=== PATIENT | female | born 1970 | race Caucasian/White ===

== ENCOUNTER 2017-10-16 18:49 | Emergency (ER) | payer OTHER ==
[~2017-10-16] VITALS: Ht 170.2 cm; Wt 95.3 kg
[2017-10-16 19:14] VITALS: BP 145/74
[2017-10-16] MEDS ORDERED: HYDR-971 PO (19:39)
--- NOTE | 2017-10-16 19:39 | PHYS DOC ---
Past Medical History Past Medical History: Other Additional Past Medical Histor: Chronic back pain Past Surgical History: Other Additional Past Surgical Histo: L4-S1 fusion Alcohol Use: None Drug Use: None Adult General Chief Complaint Chief Complaint: SHOUDLER HPI HPI Patient is a 47 year old F who presents with left shoulder pain. She reports it has been painful for a couple of months. She saw Dr. Mathur and is waiting for an MRI to be scheduled. She reports otc meds are not helping. She denies new injury. She has a sling, but hasn't been wearing it. Review of Systems Review of Systems Constitutional: Denies fever or chills [] Musculoskeletal: Left shoulder pain Integument: Denies rash or skin lesions [] Neurologic: Denies focal weakness or sensory changes [] All other systems were reviewed and found to be within normal limits, except as documented in this note. Allergies Allergies Allergies Coded Allergies Type Severity Reaction Last Updated Verified aspirin Adverse Reaction Intermediate heart races 10/16/17 Yes Physical Exam Physical Exam Constitutional: Well developed, well nourished, no acute distress, non-toxic appearance. [] HENT: Normocephalic, atraumatic Eyes: PERRLA, EOMI, conjunctiva normal, no discharge. [] Neck: Normal range of motion, no tenderness, supple, no stridor. [] Cardiovascular:Heart rate regular rhythm, no murmur [] Lungs & Thorax: Bilateral breath sounds clear to auscultation [] Skin: Warm, dry, no erythema, no rash. [] Extremities: Tenderness to left shoulder, limited ROM d/t pain Neurologic: Alert and oriented X 3, normal motor function, normal sensory function, no focal deficits noted. [] Psychologic: Affect normal, judgement normal, mood normal. [] Current Patient Data Vital Signs Vital Signs Date Time Temp Pulse Resp B/P (MAP) Pulse Ox O2 Delivery O2 Flow Rate FiO2 10/16/17 19:14 98.5 87 18 145/74 (97) 99 Room Air 98.5 EKG EKG [] Radiology/Procedures Radiology/Procedures [] Course & Med Decision Making Course & Med Decision Making Pertinent Labs and Imaging studies reviewed. (See chart for details) Plan: norco rx, wear sling, f/u with PCP, return precautions reviewed Chito Disclaimer Chito Disclaimer This electronic medical record was generated, in whole or in part, using a voice recognition dictation system. Departure Departure Impression: Primary Impression: Shoulder pain, acute Disposition: 01 HOME, SELF-CARE Condition: GOOD Referrals: JONO BUCKNER APRN (PCP) Patient Instructions: Shoulder Pain Scripts Hydrocodone/Apap 5-325 (NORCO 5-325 TABLET) 1 Each Tablet 1 TAB PO PRN Q6HRS PRN for PAIN, #20 TAB 0 Refills Prov: LOUIS REBOLLEDO APRN 10/16/17 Problem Qualifiers Primary Impression: Shoulder pain, acute Laterality: left Qualified Codes: M25.512 - Pain in left shoulder LOUIS REBOLLEDO APRN Oct 16, 2017 19:39
== END 2017-10-16 19:56 | disposition home or self-care (01) ==
LOC: ER 18:49
DX: M25.512 Pain in left shoulder (principal); G89.29 Other chronic pain; Z98.1 Arthrodesis status; Z88.6 Allergy status to analgesic agent
CPT/HCPCS: 99283

== ENCOUNTER → 2017-10-22 | Outpatient (CLI) | payer OTHER ==
[2017-10-16 19:14] VITALS: BP 145/74
[~2017-10-22] MED LIST: HYDR-971 PO
--- NOTE | 2017-10-22 09:11 | RAD ---
UPPER EXT JOINT WO CONT LEFT dated 10/22/2017 8:15 AM Indication: LEFT SHOUYLDER PAIN X 4 MONTHS, LROM, NKI, NO SX HX, NO PRIORS pain for 4 months .. Comparison: No comparison is available. Technique: Routine multiplanar multisequence imaging performed. . Findings: There is hyperintense T2 signal throughout the supraspinatus and infraspinatus portions of the rotator cuff. There is some linear fluid bright T2 signal suggestive of interstitial partial-thickness tearing. There is also a small bursal surface partial tear near the supraspinatus-infraspinatus junction near the critical zone. No full thickness cuff defect or cuff retraction. The subscapularis is intact. Mild hypertrophic change of the acromioclavicular joint. Mild undersurface irregularity of the acromium. Trace amount of subacromial/subdeltoid bursal fluid. Acromion type I morphology. Long head biceps tendon and biceps anchor are intact. There is minimal increased signal within the intra-articular portion. The extra articular portion courses within the bicipital groove. Glenoid labrum is not well evaluated due to poor signal in the axial sequences. There is some linear signal at the anterior inferior labrum could be artifactual or related to a small tear. The glenoid articular cartilage is intact. No joint effusion or loose body. Suprascapular and spinoglenoid notches are clear. There is mild edema within the infraspinatus muscle. No significant muscle atrophy. No bone marrow edema. IMPRESSION: 1. Moderate rotator cuff tendinopathy with mild interstitial and bursal surface partial tearing. No full-thickness tear or cuff retraction. 2. Mild edema within the infraspinatus muscle, reactive edema versus low-grade strain. 3. Possible small linear defect at the anterior inferior labrum versus artifact. If indicated, an MR arthrogram could better evaluate. 4. Mild AC joint arthropathy. 5. Mild biceps tendinosis. Electronically signed by: Price Bellamy MD (10/22/2017 9:08 AM) [email or web address]
== END | disposition home or self-care (01) ==
LOC: MRI 07:43
PROVIDERS: ATTEND Orthopaedic Surgery Sports Medicine
DX: M75.102 Unspecified rotator cuff tear or rupture of left shoulder, not specified as traumatic (principal); M12.812 Other specific arthropathies, not elsewhere classified, left shoulder; M75.22 Bicipital tendinitis, left shoulder; R60.0 Localized edema; Z88.6 Allergy status to analgesic agent
CPT/HCPCS: 73221

== ENCOUNTER → 2017-12-18 | Day surgery (SDC) | payer OTHER ==
[~2017-12-18] MED LIST changes: +BUPIVACAINE 0.5% 50 ML VIAL. ONE; +DEXAMETHASONE SOD PHOS 20 MG/5 ML VIAL. ONE; +DIPH25CA58 PO; +DOCU-109 PO; +EPINEPHrine VIAL 30 MG/30 ML VIAL ONE; +GABA-586 PO; +GLYCOPYRROLATE 1 MG/5 ML VIAL. ONE; +HYDROmorphone 2 MG/ML VIAL IV PRN; +IBUP-1027 PO; +IV RINGERS,LACTATED 1000ML 1,000 ML IV SCH; +LIDOCAINE 1% PF 2 ML VIAL. ID PRN; +LIDOCAINE 1% PF 30 ML VIAL. ONE; +LIDOCAINE 2% PF Vial for OR 5 ML VIAL. ONE; +METH-37 PO; +MIDAZOLAM HCL/PF 2 MG/2 ML VIAL. ONE; +MORPHINE SULFATE 2 MG/ML VIAL. ONE; +ONDA4TAB10 SL; +ONDANSETRON PF 4 MG/2 ML VIAL. IV PRN; +ONDANSETRON PF 4 MG/2 ML VIAL. ONE; +OXYC-323 PO; +PHENYLEPHRINE 10 MG/ML VIAL. ONE; +PROCHLORPERAZINE 10 MG/2 ML VIAL. IV PRN; +PROPOFOL 20 ML IV ONE; +SEVOFLURANE 61 TO 120 MINUTES. IH ONE; +SUCCINYLCHOLINE 200 MG/10 ML VIAL. ONE; +fentaNYL PF VIAL 100 MCG/2 ML VIAL IV PRN; +fentaNYL PF VIAL 100 MCG/2 ML VIAL ONE; +oxyCODONE/APAP 5/325 1 TAB TABLET PO ONE
[2017-12-18 06:19] LABS: U PREG PATIENT NEGATIVE (NEG)
--- NOTE | 2017-12-18 07:13 | DISCH ---
DISCHARGE INSTRUCTIONS Condition on Discharge Condition on Discharge: Stable Activity After Discharge Activity Instructions for Disc: Other, see below Other activity instructions: arm to remain in sling Weight Bearing Status after Di: Non weight bearing Diet after Discharge Diet after Discharge: Regular Wound Incision Care Wound/Incision Care: Ice to area for comfort, Keep wound/cast CDI, Change dressing Contacting the DRZach after DC Call your doctor for: Concerns you may have Follow-Up Follow up with: Kevan in 2 wks HARLEY NATION II, MD Dec 18, 2017 07:13
--- NOTE | 2017-12-18 08:57 | PDOC4 ---
Operative Note Operative Note Date of procedure: 12/18/2017 Surgeon: Gregor Nation Focusing Machine Operator: Charito Mercedes, certified nurses aide Preoperative diagnosis: Left shoulder incomplete rotator cuff tear Postoperative diagnosis: Same Procedure performed: Arthroscopic left shoulder rotator cuff repair Components inserted: [employer] helacoil suture anchor 1 Anesthesia: Gen. plus regional nerve block Complications: None Blood loss 10 mL Findings: Normal glenohumeral cartilage Fraying and discolored supraspinatus Labrum was intact and stable to probing, large middle glenohumeral ligament Normal appearing biceps tendon Normal appearing subscapularis, infraspinatus and teres minor No loose bodies Reason for procedure: Patient is a very pleasant 47-year-old female with persistent left shoulder pain despite conservative therapies including anti- inflammatories, injections, physical therapy. Clinical and radiographic examination, including MRI, consistent with her preoperative diagnosis and after discussion of the risks benefits alternatives she elected to proceed with the above surgery. Description of procedure: Patient was greeted in the preoperative holding area by myself for the correct extremity was verified and marked. She underwent a regional nerve block by the anesthesiologist. She was taken back to the operative suite and antibiotics were started as she was brought back. Once in the operating room, she was transferred gently supine to the operating room table and had successful induction of a general anesthetic. She was then sat up in a beachchair position with her C-spine maintained in neutral position and a large pillow under her legs. She was secured to the bed. We then proceeded prep and drape left upper extremity and shoulder girdle in our usual sterile fashion and then conducted our standard preoperative timeout. Ioban was used at the periphery of the draping. I palpated and marked surface anatomy and used a spinal needle to localize a posterior superior portal and incised skin in accordance with this. I just used a blunt arthroscopic trocar into the glenohumeral joint followed by the camera. I then used a spinal to localize an anterosuperior portal and incised skin and dilated this well. I then conducted my diagnostic arthroscopy with the above-noted findings. I then inspected the rotator cuff, and passed a PDS suture through the abnormal-appearing tendon under super spinatus. I shuttled this other limb out through the anterosuperior portal and clamped the limbs together to cory the area of concern. I then withdrew the camera and repositioned in the subacromial space and used a comminution of shaver and electrocautery to perform a bursectomy. I then inspected the rotator cuff tendon from the subacromial space. I was easily able to enter the substance of the tendon with the blunt arthroscopic trocar. The PDS suture was withdrawn, and I used my shaver to debride the rotator cuff tendon back to healthy-appearing tissue. I debrided the footprint as well, taking care not to decorticate the bone. After this, used my starting awl to place my suture anchor. Suture anchor was stable. I then used the first pass device to shuttle the suture limbs through in a simple configuration for each and tied these down using arthroscopic knot-tying techniques. I cut the loose ends and inspected my repair took my final pictures. I then removed all excess arthroscopic fluid and the arthroscopic its mentation. Portals were closed with simple interrupted 3-0 nylon. The shoulder and arm were cleansed and dried and a sterile dressing was applied. Left upper extremity was placed in an abduction pillow sling. She was laid supine and transferred gently supine to the recovery room cart and taken to PACU in stable and extubated condition. Postoperative plan is to discharge her home. Nonweightbearing 4 weeks. We will get her started on physical therapy. We will see her back in 2 weeks, sooner should a problem arise GREGOR NATION II, MD Dec 18, 2017 08:57
[2017-12-18] MEDS: MORPHINE SULFATE 2 MG/ML VIAL. IV PRN ×2 (09:21→09:37)
[2017-12-18 10:28] VITALS: BP 134/54
== END | disposition home or self-care (01) ==
LOC: SURG 05:53
PROVIDERS: ATTEND Orthopaedic Surgery Sports Medicine
DX: S46.012A Strain of muscle(s) and tendon(s) of the rotator cuff of left shoulder, initial encounter (principal); Z88.6 Allergy status to analgesic agent; Z90.49 Acquired absence of other specified parts of digestive tract; Z98.51 Tubal ligation status; Z98.890 Other specified postprocedural states; Z79.82 Long term (current) use of aspirin; X58.XXXA Exposure to other specified factors, initial encounter; Y93.89 Activity, other specified; Y92.89 Other specified places as the place of occurrence of the external cause; Y99.8 Other external cause status
CPT/HCPCS: 29827; 81025; A7015; C1713; C1782; J0171; J0330; J0690; J1100; J2001; J2250; J2270; J2405; J2704; J3010; J3490

== ENCOUNTER → 2018-07-11 | Outpatient (CLI) | payer OTHER ==
[2017-12-18 10:28] VITALS: BP 134/54
[~2018-07-11] MED LIST changes: -BUPIVACAINE 0.5% 50 ML VIAL. ONE; -DEXAMETHASONE SOD PHOS 20 MG/5 ML VIAL. ONE; -EPINEPHrine VIAL 30 MG/30 ML VIAL ONE; -GABA-586 PO; +GABA300C18 PO; -GLYCOPYRROLATE 1 MG/5 ML VIAL. ONE; +HYDR-3164 PO; -HYDR-971 PO; -HYDROmorphone 2 MG/ML VIAL IV PRN; +IOHEXOL 240 MG/ML 50ML VIAL. PO ONE; +IOHEXOL 300 MG/ML 100ML VIAL. IV ONE; -IV RINGERS,LACTATED 1000ML 1,000 ML IV SCH; -LIDOCAINE 1% PF 2 ML VIAL. ID PRN; -LIDOCAINE 1% PF 30 ML VIAL. ONE; -LIDOCAINE 2% PF Vial for OR 5 ML VIAL. ONE; -MIDAZOLAM HCL/PF 2 MG/2 ML VIAL. ONE; -MORPHINE SULFATE 2 MG/ML VIAL. ONE; -ONDANSETRON PF 4 MG/2 ML VIAL. IV PRN; -ONDANSETRON PF 4 MG/2 ML VIAL. ONE; -OXYC-323 PO; +OXYC1TAB15 PO; -PHENYLEPHRINE 10 MG/ML VIAL. ONE; -PROCHLORPERAZINE 10 MG/2 ML VIAL. IV PRN; -PROPOFOL 20 ML IV ONE; -SEVOFLURANE 61 TO 120 MINUTES. IH ONE; -SUCCINYLCHOLINE 200 MG/10 ML VIAL. ONE; -fentaNYL PF VIAL 100 MCG/2 ML VIAL IV PRN; -fentaNYL PF VIAL 100 MCG/2 ML VIAL ONE; -oxyCODONE/APAP 5/325 1 TAB TABLET PO ONE
--- NOTE | 2018-07-11 11:08 | KC[facility] ---
CT abdomen pelvis with contrast dated 07/11/2018. Comparison made to 08/25/2011. Clinical data indication: Left lower quadrant pain. Evaluate for hernia. TECHNIQUE: Per contiguous axial imaging the abdomen and pelvis performed after the administration of 100 cc Omnipaque 300. One or more of the following individualized dose reduction techniques were utilized for this examination: 1. Automated exposure control 2. Adjustment of the mA and/or kV according to patient size 3. Use of iterative reconstruction technique. FINDINGS: Limited images of the lung bases are clear. Heart size within normal limits. No pleural or pericardial effusion. Liver is of diffuse low density compatible with fatty infiltration. No apparent mass. Biliary tree normal in caliber. Spleen is normal in size. Pancreas, adrenal glands and kidneys are unremarkable. No hydronephrosis. Partially opacified GI tract normal in caliber and contour. No focal bowel wall thickening. No inflammatory stranding in the mesentery. The appendix is surgically absent. No ascites or lymphadenopathy. Abdominal aorta normal in caliber. There are a few nonpathologically enlarged lymph nodes in the left periaortic region, nonspecific but unchanged. Images of pelvis show nondistended urinary bladder. Heterogeneity of the uterus, unchanged. 2.6 cm left ovarian cyst. Right ovary unremarkable. No free fluid or lymphadenopathy. There is a small ventral hernia at the lower linea alba extending between the rectus muscles near the midline contains only fat. This is located anterior to the urinary bladder and is new from prior exam. No significant inguinal hernia. Bone windows show no acute findings. Anterior and posterior fusion at the L4-L5 and L5-S1 levels. Multilevel spondylosis. IMPRESSION: 1. Prominent infraumbilical ventral hernia containing only fat, new from prior study. 2. Otherwise no acute findings. 3. Small left ovarian cyst. 4. Postsurgical changes of the lower lumbar spine. Electronically signed by: Price Bellamy MD (07/11/2018 11:05 AM) [facility]
== END | disposition home or self-care (01) ==
LOC: KCIC CT 09:06
PROVIDERS: ATTEND Nurse Practitioner Family
DX: K43.9 Ventral hernia without obstruction or gangrene (principal); N83.202 Unspecified ovarian cyst, left side; R59.0 Localized enlarged lymph nodes
CPT/HCPCS: 74177; Q9966; Q9967

== ENCOUNTER 2018-07-28 07:30 | Observation (INO) | payer OTHER ==
[2018-07-28] VITALS (11 sets, daily range): BP systolic 108–129; BP diastolic 47–77
[~2018-07-28] VITALS: Ht 170.2 cm; Wt 101.0 kg
[~2018-07-28 07:30] MED LIST changes: +HYDROmorphone 2 MG/ML VIAL IV PRN; -IOHEXOL 240 MG/ML 50ML VIAL. PO ONE; -IOHEXOL 300 MG/ML 100ML VIAL. IV ONE; +IV RINGERS,LACTATED 1000ML 1,000 ML IV SCH; +LIDOCAINE 1% PF 2 ML VIAL. ID PRN; +MORPHINE SULFATE 2 MG/ML VIAL. IV PRN; +ONDANSETRON PF 4 MG/2 ML VIAL. IV PRN; +PROCHLORPERAZINE 10 MG/2 ML VIAL. IV PRN; +fentaNYL PF VIAL 100 MCG/2 ML VIAL IV PRN
[2018-07-28 07:55] LABS: U PREG PATIENT NEGATIVE (NEG)
[2018-07-28 08:18] LABS: BASO # 0.1 x10^3/uL (0.0-0.2); BASO % 1 % (0-3); EOS # 0.2 x10^3/uL (0.0-0.7); EOS % 2 % (0-3); HEMATOCRIT 38.2 % (36.0-47.0); HEMOGLOBIN 12.7 g/dL (12.0-15.5); LYMPH % 25 % (24-48); MEAN CORPUSCULAR HEMOGLOBIN 29 pg (25-35); MEAN CORPUSCULAR HGB CONC 33 g/dL (31-37); MEAN CORPUSCULAR VOLUME 88 fL (79-100); MONO # 0.6 x10^3/uL (0.0-1.1); MONO % 7 % (0-9); NEUT # 5.3 x10^3uL (1.8-7.7); NEUT % 65 % (31-73); PLATELET COUNT 314 x10^3/uL (140-400); RED BLOOD COUNT 4.36 x10^6/uL (3.50-5.40); RED CELL DISTRIBUTION WIDTH 14.7 % (11.5-14.5); WHITE BLOOD COUNT 8.1 x10^3/uL (4.0-11.0)
[2018-07-28] MEDS ORDERED: ONDANSETRON PF 4 MG/2 ML VIAL. ONE (08:19)
[2018-07-28] MEDS ORDERED: LIDOCAINE 2% PF 5 ML VIAL. ONE (08:19)
[2018-07-28] MEDS ORDERED: DEXAMETHASONE SOD PHOS 4 MG/ML VIAL ONE ×2 (08:19)
[2018-07-28] MEDS ORDERED: FAMOTIDINE 20 MG/2 ML VIAL ONE (08:19)
[2018-07-28] MEDS ORDERED: PROPOFOL 20 ML IV ONE (08:19)
[2018-07-28] MEDS ORDERED: diphenhydrAMINE 50 MG/ML VIAL ONE (08:21)
[2018-07-28] MEDS ORDERED: fentaNYL PF VIAL 100 MCG/2 ML VIAL ONE (08:21)
[2018-07-28] MEDS ORDERED: MIDAZOLAM HCL/PF 2 MG/2 ML VIAL. ONE (08:21)
[2018-07-28] MEDS ORDERED: ROCURONIUM 50 MG/5 ML VIAL. ONE (08:22)
[2018-07-28] MEDS ORDERED: SUCCINYLCHOLINE 200 MG/10 ML VIAL. ONE (08:25)
[2018-07-28] MEDS ORDERED: SCOPOLAMINE 1.5MG PATCH. TD ONE (08:30)
[2018-07-28] MEDS ORDERED: SEVOFLURANE 31 TO 60 MINUTES. IH ONE ×3 (08:37→10:31)
[2018-07-28 09:17] LABS: ALBUMIN 3.3 g/dL (3.4-5.0); ALBUMIN/GLOBULIN RATIO 0.8 (1.0-1.7); CALCIUM 8.9 mg/dL (8.5-10.1); CREATININE 0.7 mg/dL (0.6-1.0); GFR 90.1; TOTAL BILIRUBIN 0.4 mg/dL (0.2-1.0); TOTAL PROTEIN 7.2 g/dL (6.4-8.2)
[2018-07-28] MEDS ORDERED: SEVOFLURANE 61 TO 120 MINUTES. IH ONE ×2 (10:30→10:33)
[2018-07-28] MEDS ORDERED: NEOSTIGMINE METHYLSULFATE 5 MG/5 ML SYRINGE. ONE ×2 (10:30→10:32)
[2018-07-28] MEDS ORDERED: GLYCOPYRROLATE 1 MG/5 ML SYRINGE. ONE (10:30)
[2018-07-28] MEDS ORDERED: GLYCOPYRROLATE 1 MG/5 ML VIAL. ONE (10:31)
--- NOTE | 2018-07-28 11:07 | PDOC4 ---
Operative Note Operative Note Operative Note: Preoperative Diagnosis: Ventral hernia Postoperative Diagnosis: Ventral hernia Procedure: Ventral hernia repair with mesh Surgeon: Jorge A [id number] Operator: Mai FERREIRA Anesthesia: Gen. EBL: 100 mL Specimen: None Drains: None Complications: None Indication: The patient is a 48-year-old female who is referred with a ventral hernia. She was offered surgical repair. The risks of surgery were discussed which include bleeding, infection, recurrence, pain, mesh reaction, anesthetic risk, visceral injury, potential need for additional surgery or procedure. She understands and would like to proceed. Description: The patient was taken to the operating room and placed supine on the operating table. Gen. anesthesia was performed. The abdomen was prepped with ChloraPrep and draped with sterile towels, sheets, and an Ioban. A lower vertical midline incision was made in the skin with a scalpel. Cautery dissection was carried down to the fascia. The hernia defect was readily identified in the lower mid abdomen. The edges of the defect were clearly delin eated. A preperitoneal plane was developed with a combination of cautery and blunt dissection. A large Ventralex ST mesh was then placed into the newly created preperitoneal plane. The mesh rested well providing several centimeters of overlap in all actions. The mesh was sutured into position around its periphery using 0 Prolene placed in a horizontal mattress fashion. A total of 8 sutures were used anchoring the mesh into position. The fascial edges were closed over the mesh with interrupted 0 Prolene. The deep subcutaneous tissue was approximated with 0 Vicryl. The superficial subcutaneous tissues closed with 3-0 Vicryl. The skin was closed with 4-0 Monocryl and a sterile dressing was applied. The patient tolerated the procedure well and was sent to the recovery room in stable condition. At the end of the case all counts were correct. MELISSA SAMPSON MD Jul 28, 2018 11:07
[2018-07-28] MEDS ORDERED: HYDROmorphone 2 MG/ML VIAL IV PRN (11:15)
[2018-07-28] MEDS ORDERED: ONDANSETRON PF 4 MG/2 ML VIAL. IV PRN (11:15)
[2018-07-28] MEDS ORDERED: 0.9 % SODIUM CHLORIDE 10 ML DISP.SYRIN. IV PRN (11:15)
[2018-07-28] MEDS ORDERED: oxyCODONE/APAP 5/325 1 TAB TABLET PO PRN (11:15)
[2018-07-28] MEDS: fentaNYL PF VIAL 100 MCG/2 ML VIAL IV PRN ×2 (11:34→12:32)
[2018-07-28] MEDS: IV 1/2 NORMAL SALINE 1,000 ML IV SCH (14:58)
[2018-07-28] MEDS: oxyCODONE/APAP 5/325 1 TAB TABLET PO PRN ×2 (16:10→22:49)
[2018-07-29 03:00] VITALS: BP 130/57
[2018-07-29] MEDS: IV 1/2 NORMAL SALINE 1,000 ML IV SCH ×2 (04:54→13:00)
[2018-07-29 07:00] VITALS: BP 121/68
[2018-07-29] MEDS: oxyCODONE/APAP 5/325 1 TAB TABLET PO PRN (08:19)
[2018-07-29 11:00] VITALS: BP 103/55
--- NOTE | 2018-07-29 11:01 | NUR ---
SW following for discharge planning. Discussed with RN, pt is from home with , RN advised no SW needs at this time and anticipates pt will discharge home with self care today.
[2018-07-29] MEDS ORDERED: OXYC1TAB15 PO (11:54)
--- NOTE | 2018-07-29 11:58 | DISCH ---
DISCHARGE INSTRUCTIONS Condition on Discharge Condition on Discharge: Stable Activity After Discharge Activity Instructions for Disc: Activity as tolerated, Other, see below Other activity instructions: NO lifting > 20 lbs Lifting Instructions after Dis: No pulling or pushing Exercise Instruction after Dis: Progress as tolerated Weight Bearing Status after Di: No restrictions Diet after Discharge Diet after Discharge: Regular Wound Incision Care Wound/Incision Care: Ice to area for comfort, Change dressing, May get incision wet Other wound/incision instructi: ok ot shower, no tub baths, wear abdominal binder Contacting the after DC Call your doctor for: Concerns you may have Follow-Up Follow up with: Dr Jules 2 weeks, call to schedule [phone] TRE GONSALES STOCK REPAIRER Jul 29, 2018 11:58
--- NOTE | 2018-07-29 12:00 | PDOC ---
SURGICAL PROGRESS NOTE Subjective tolerating diet ambulating pain managed urinating Vital Signs Vital Signs Date Time Temp Pulse Resp B/P (MAP) Pulse Ox O2 Delivery O2 Flow Rate FiO2 07/29/18 11:00 97.9 68 18 103/55 (71) 94 Room Air 97.9 07/28/18 11:34 8.0 I&O Intake and Output 07/29/18 07:00 Intake Total 3650 ml Output Total 400 ml Balance 3250 ml Intake Oral 480 ml IV Total 2210 ml Other 960 ml Output Urine Total 300 ml Estimated Blood Loss 100 ml # Voids 3 General: Alert, Oriented X3, Cooperative, No acute distress Abdomen: Soft, Other (incision c/d/i, no erythema ) Labs Laboratory Tests Test 07/28/18 07:48 07/28/18 08:09 07/28/18 08:29 Urine Test Negative (NEG) White Blood Count 8.1 x10^3/uL (4.0-11.0) Red Blood Count 4.36 x10^6/uL (3.50-5.40) Hemoglobin 12.7 g/dL (12.0-15.5) Hematocrit 38.2 % (36.0-47.0) Mean Corpuscular Volume 88 fL (79-100) Mean Corpuscular Hemoglobin 29 pg (25-35) Mean Corpuscular Hemoglobin Concent 33 g/dL (31-37) Red Cell Distribution Width 14.7 % (11.5-14.5) Platelet Count 314 x10^3/uL (140-400) Neutrophils (%) (Auto) 65 % (31-73) Lymphocytes (%) (Auto) 25 % (24-48) Monocytes (%) (Auto) 7 % (0-9) Eosinophils (%) (Auto) 2 % (0-3) Basophils (%) (Auto) 1 % (0-3) Neutrophils # (Auto) 5.3 x10^3uL (1.8-7.7) Lymphocytes # (Auto) 2.0 x10^3/uL (1.0-4.8) Monocytes # (Auto) 0.6 x10^3/uL (0.0-1.1) Eosinophils # (Auto) 0.2 x10^3/uL (0.0-0.7) Basophils # (Auto) 0.1 x10^3/uL (0.0-0.2) Sodium Level 138 mmol/L (136-145) Potassium Level 4.0 mmol/L (3.5-5.1) Chloride Level 104 mmol/L (98-107) Carbon Dioxide Level 23 mmol/L (21-32) Anion Gap 11 (6-14) Blood Urea Nitrogen 11 mg/dL (7-20) Creatinine 0.7 mg/dL (0.6-1.0) Estimated GFR (Cockcroft-Gault) 90.1 BUN/Creatinine Ratio 16 (6-20) Glucose Level 104 mg/dL (70-99) Calcium Level 8.9 mg/dL (8.5-10.1) Total Bilirubin 0.4 mg/dL (0.2-1.0) Aspartate Amino Transf (AST/SGOT) 18 U/L (15-37) Alanine Aminotransferase (ALT/SGPT) 34 U/L (14-59) Alkaline Phosphatase 110 U/L (46-116) Total Protein 7.2 g/dL (6.4-8.2) Albumin 3.3 g/dL (3.4-5.0) Albumin/Globulin Ratio 0.8 (1.0-1.7) Assessment/Plan s/p VIH repair DC home scripts on chart TRE GONSALES APRN Jul 29, 2018 12:00
--- NOTE | 2018-07-29 13:13 | NUR ---
Pt discharged around 1310 via wheelchair to private vehicle. Family accompanied pt and driving home. Pt VSS, A&Ox4, vocalized understanding of discharge instructions. Pt has no questions at this time.
== END 2018-07-29 13:10 | disposition home or self-care (01) ==
LOC: SURG 07:30 → 4 NORTH 11:08
PROVIDERS: ADMIT Surgery; ATTEND Surgery
PROC: 0WUF0JZ Supplement Abdominal Wall with Synthetic Substitute, Open Approach (ICD-10-PCS; principal; 2018-07-28 09:05)
DX: K43.9 Ventral hernia without obstruction or gangrene (principal); E66.9 Obesity, unspecified
CPT/HCPCS: 36415; 49565; 49568; 80053; 81025; 85025; A7015; C1713; G0378; G0379; J0330; J0696; J1100; J1200; J2001; J2250; J2405; J2704; J2710; J3010; J3490; J7120

== ENCOUNTER → 2018-08-24 | Emergency (ER) | payer OTHER ==
[~2018-08-24] VITALS: Ht 170.2 cm; Wt 97.5 kg
[~2018-08-24] MED LIST changes: +CLIN150C14 PO; +CONTRAST GIVEN. MC PRN; -HYDROmorphone 2 MG/ML VIAL IV PRN; +IOHEXOL 300 MG/ML 100ML VIAL. IV ONE; -IV RINGERS,LACTATED 1000ML 1,000 ML IV SCH; -LIDOCAINE 1% PF 2 ML VIAL. ID PRN; -MORPHINE SULFATE 2 MG/ML VIAL. IV PRN; -ONDANSETRON PF 4 MG/2 ML VIAL. IV PRN; -PROCHLORPERAZINE 10 MG/2 ML VIAL. IV PRN; -fentaNYL PF VIAL 100 MCG/2 ML VIAL IV PRN
[2018-08-24 12:28] VITALS: BP 149/82
--- NOTE | 2018-08-24 12:39 | PHYS DOC ---
Past Medical History Past Medical History: Other Additional Past Medical Histor: Chronic back pain Past Surgical History: Other Additional Past Surgical Histo: L4-S1 fusion Smoking: Cigarettes, Less than 1pk/day Alcohol Use: None Drug Use: None Adult General Chief Complaint Chief Complaint: WOUND CHECK [facility] HPI Patient is a 48 year old female presents with chief complaint wound check. Patient she had a hernia surgery on July [address] Jules. The patient saw Dr. Jules on Saturday this past week and states that her abdominal wound looked okay. However states that since that time she started to notice increased redness, and drainage from the surgical site. Her pain as 4 out of 10 in severity states she has been taking Percocet at home as she has needed. Review of Systems Review of Systems Constitutional: Denies fever or chills [] Eyes: Denies change in visual acuity, redness, or eye pain [] HENT: Denies nasal congestion or sore throat [] Respiratory: Denies cough or shortness of breath [] Cardiovascular: No additional information not addressed in HPI [] GI: Report abdominal pain denies nausea, vomiting, bloody stools or diarrhea [] : Denies dysuria or hematuria [] Musculoskeletal: Denies back pain or joint pain [] Integument: Denies rash or skin lesions [] Neurologic: Denies headache, focal weakness or sensory changes [] Endocrine: Denies polyuria or polydipsia [] Complete systems were reviewed and found to be within normal limits, except as documented in this note. Current Medications Current Medications Current Medications Medications (Trade) Dose Ordered Sig/Fabrice Start Time Stop Time Status Last Admin Dose Admin Info (CONTRAST GIVEN -- Rx MONITORING) 1 each PRN DAILY PRN 08/24/18 14:00 08/26/18 13:59 Iohexol (Omnipaque 300 Mg/ml) 75 ml 1X ONCE 08/24/18 14:00 08/24/18 14:01 DC 08/24/18 14:05 75 ML Allergies Allergies Allergies Coded Allergies Type Severity Reaction Last Updated Verified aspirin Adverse Reaction Intermediate heart races 07/28/18 Yes Physical Exam Physical Exam Constitutional: Well developed, well nourished, no acute distress, non-toxic appearance. [] HENT: Normocephalic, atraumatic, bilateral external ears normal, oropharynx moist, no oral exudates, nose normal. [] Eyes: PERRLA, EOMI, conjunctiva normal, no discharge. [] Neck: Normal range of motion, no tenderness, supple, no stridor. [] Cardiovascular:Heart rate regular rhythm, no murmur [] Lungs & Thorax: Bilateral breath sounds clear to auscultation [] Abdomen: Bowel sounds normal, soft, tenderness to surgical site with erythema and redness, area under the surgical site that is hard on palpation, no pulsatile masses. [] Skin: Warm, dry, no erythema, no rash. [] Back: No tenderness, no CVA tenderness. [] Extremities: No tenderness, no cyanosis, no clubbing, ROM intact, no edema. [] Neurologic: Alert and oriented X 3, normal motor function, normal sensory function, no focal deficits noted. [] Psychologic: Affect normal, judgement normal, mood normal. [] Current Patient Data Vital Signs Vital Signs Date Time Temp Pulse Resp B/P (MAP) Pulse Ox O2 Delivery O2 Flow Rate FiO2 08/24/18 12:28 97.4 80 14 149/82 (104) 97 Room Air 97.4 Lab Values Laboratory Tests Test 08/24/18 12:45 08/24/18 13:21 White Blood Count 7.7 x10^3/uL (4.0-11.0) Red Blood Count 4.18 x10^6/uL (3.50-5.40) Hemoglobin 12.3 g/dL (12.0-15.5) Hematocrit 36.3 % (36.0-47.0) Mean Corpuscular Volume 87 fL (79-100) Mean Corpuscular Hemoglobin 29 pg (25-35) Mean Corpuscular Hemoglobin Concent 34 g/dL (31-37) Red Cell Distribution Width 14.4 % (11.5-14.5) Platelet Count 330 x10^3/uL (140-400) Neutrophils (%) (Auto) 64 % (31-73) Lymphocytes (%) (Auto) 25 % (24-48) Monocytes (%) (Auto) 6 % (0-9) Eosinophils (%) (Auto) 4 % (0-3) H Basophils (%) (Auto) 1 % (0-3) Neutrophils # (Auto) 4.9 x10^3uL (1.8-7.7) Lymphocytes # (Auto) 1.9 x10^3/uL (1.0-4.8) Monocytes # (Auto) 0.4 x10^3/uL (0.0-1.1) Eosinophils # (Auto) 0.3 x10^3/uL (0.0-0.7) Basophils # (Auto) 0.1 x10^3/uL (0.0-0.2) Lactic Acid Level 0.7 mmol/L (0.4-2.0) Sodium Level 136 mmol/L (136-145) Potassium Level 4.1 mmol/L (3.5-5.1) Chloride Level 101 mmol/L (98-107) Carbon Dioxide Level 25 mmol/L (21-32) Anion Gap 10 (6-14) Blood Urea Nitrogen 10 mg/dL (7-20) Creatinine 0.7 mg/dL (0.6-1.0) Estimated GFR (Cockcroft-Gault) 90.1 BUN/Creatinine Ratio 14 (6-20) Glucose Level 94 mg/dL (70-99) Calcium Level 8.8 mg/dL (8.5-10.1) Total Bilirubin 0.4 mg/dL (0.2-1.0) Aspartate Amino Transferase (AST) 19 U/L (15-37) Alanine Aminotransferase (ALT) 27 U/L (14-59) Alkaline Phosphatase 125 U/L (46-116) H Total Protein 7.5 g/dL (6.4-8.2) Albumin 3.7 g/dL (3.4-5.0) Albumin/Globulin Ratio 1.0 (1.0-1.7) Laboratory Tests 08/24/18 12:45 Laboratory Tests 08/24/18 13:21 EKG EKG [] Radiology/Procedures Radiology/Procedures [] Course & Med Decision Making Course & Med Decision Making Pertinent Labs and Imaging studies reviewed. (See chart for details) Concern for infection of surgical site. Will get labs, and CT to evaluate for abscess. Labs look unremarkable. WBC is 7.7, lactic is negative. CT scan showed a fluid collection along the midline lower anterior abdominal incision. Paged and talked to Dr. Jules who performed the surgery who states that "this is a normal finding after a hernia surgery". He states that he will see her on Saturday. I will place on clindamycin and d/c home to follow up with [facility]. Dale Disclaimer Chito Disclaimer This electronic medical record was generated, in whole or in part, using a voice recognition dictation system. Departure Departure Impression: Primary Impression: Wound cellulitis after surgery Disposition: HOME, SELF-CARE Condition: STABLE Referrals: JONO BUCKNER APRN (PCP) Patient Instructions: Cellulitis Additional Instructions: Thank you for visiting [facility]. We appreciate you trusting us with your care. If any additional problems come up don't hesitate to return to visit us. Please follow up with your primary care provider so they can plan additional care if needed and know about the problem that you had. If symptoms worsen come back to the Emergency Department. Any concerning symptoms that start such as chest pain, shortness of Air, weakness or numbness on one side of the body, running high fevers or any other concerning symptoms return to the ER. You have been prescribed an antibiotic today to help fight your infection. Please take all of the antibiotic as directed. If after 48 hours the infection is not improving, please return for more care. If the infection worsens, return to ER for additional care. Please fill your medications at any pharmacy and follow the prescription instructions. Scripts Clindamycin Hcl (CLINDAMYCIN HCL) 150 Mg Capsule 3 CAP PO TID for 7 Days, #63 CAP Prov: SIDDHARTH GALVEZ APRN 08/24/18 SIDDHARTH GALVEZ APRN Aug 24, 2018 12:39
[2018-08-24 13:13] LABS: BASO # 0.1 x10^3/uL (0.0-0.2); BASO % 1 % (0-3); EOS # 0.3 x10^3/uL (0.0-0.7); EOS % 4 % (0-3); HEMATOCRIT 36.3 % (36.0-47.0); HEMOGLOBIN 12.3 g/dL (12.0-15.5); LYMPH # 1.9 x10^3/uL (1.0-4.8); LYMPH % 25 % (24-48); MEAN CORPUSCULAR HEMOGLOBIN 29 pg (25-35); MEAN CORPUSCULAR HGB CONC 34 g/dL (31-37); MEAN CORPUSCULAR VOLUME 87 fL (79-100); MONO # 0.4 x10^3/uL (0.0-1.1); MONO % 6 % (0-9); NEUT # 4.9 x10^3uL (1.8-7.7); NEUT % 64 % (31-73); PLATELET COUNT 330 x10^3/uL (140-400); RED BLOOD COUNT 4.18 x10^6/uL (3.50-5.40); RED CELL DISTRIBUTION WIDTH 14.4 % (11.5-14.5); WHITE BLOOD COUNT 7.7 x10^3/uL (4.0-11.0)
[2018-08-24 13:45] LABS: CALCIUM 8.8 mg/dL (8.5-10.1); CREATININE 0.7 mg/dL (0.6-1.0); GFR 90.1; POTASSIUM 4.1 mmol/L (3.5-5.1)
[2018-08-24 13:51] LABS: ALBUMIN 3.7 g/dL (3.4-5.0); TOTAL BILIRUBIN 0.4 mg/dL (0.2-1.0); TOTAL PROTEIN 7.5 g/dL (6.4-8.2)
--- NOTE | 2018-08-24 16:10 | RAD ---
EXAM: CT ABDOMEN/PELVIS WITH CONTRAST. HISTORY: Postoperative abdominal pain. TECHNIQUE: Computed tomography of the abdomen and pelvis was performed after the intravenous administration of 75 mL Omnipaque 300. COMPARISON: 07/11/2018. FINDINGS: Lung windows through the visualized portions of the bases reveal mild atelectasis. Bone windows reveal no suspicious lesions. There are instrumented anterior and posterior fusion changes from L4 through S1. There is a fluid collection within the subcutaneous compartment along the lower abdominal midline incision measuring 9.3 x 3.5 cm transaxially and 6 cm craniocaudally. It communicates through a thin channel with an intra-abdominal collection deep to the rectus muscles that measures 6.0 x 1.5 cm. Stranding within the underlying fat likely reflects a component of fat necrosis. The appendix is surgically absent. There is no small bowel obstruction. There are no pathologically enlarged lymph nodes. The liver, gallbladder, pancreas, adrenal glands, kidneys and spleen are unremarkable. IMPRESSION: 1. A fluid collection along the midline lower anterior abdominal incision has subcutaneous and intra-abdominal components and measures approximately 9 x 4 cm subcutaneously and 6 x 2 cm intra-abdominally. *One or more of the following individualized dose reduction techniques were utilized for this examination: 1. Automated exposure control. 2. Adjustment of the mA and/or kV according to patient size. 3. Use of iterative reconstruction technique. Electronically signed by: Rolando Perez MD (08/24/2018 4:07 PM) [facility]
== END ==
LOC: ER 11:44
DX: T81.49XA Infection following a procedure, other surgical site, initial encounter (principal); L03.311 Cellulitis of abdominal wall; G89.29 Other chronic pain; F17.210 Nicotine dependence, cigarettes, uncomplicated; Y83.8 Other surgical procedures as the cause of abnormal reaction of the patient, or of later complication, without mention of misadventure at the time of the procedure; Y92.89 Other specified places as the place of occurrence of the external cause
CPT/HCPCS: 36415; 74177; 80053; 83605; 85025; 99285; Q9967; 87071; 87075